=== PATIENT | male | born 1940 | race Caucasian/White ===

== ENCOUNTER 2022-03-29 16:32 | Emergency (ER) | payer BC, MEDICAID ==
[~2022-03-29] VITALS: Ht 190.5 cm; Wt 72.0 kg
[~2022-03-29 16:32] MED LIST: ALBU8HFA PO; ASPI-1071 PO; ATOR10TA PO; BUDE10.22 INH; CEFD300C3 PO; COR3.125T PO; PRED10TA23 PO; tamsulosin capsule PO
[2022-03-29 17:55] VITALS: BP 105/66
--- NOTE | 2022-03-29 18:08 | NUR ---
FAXED PAPER WORK @[id number] PER PA
== END 2022-03-29 18:18 | disposition home or self-care (01) ==
LOC: ER 16:34
DX: R31.9 Hematuria, unspecified (principal); C67.9 Malignant neoplasm of bladder, unspecified; F15.10 Other stimulant abuse, uncomplicated; Z79.899 Other long term (current) drug therapy
CPT/HCPCS: 99284